=== PATIENT | male | born 1955 | race Caucasian/White ===

== ENCOUNTER 2016-11-11 17:50 | Emergency (ER) | payer OTHER ==
[~2016-11-11] VITALS: Ht 170.2 cm; Wt 65.8 kg
--- NOTE | 2016-11-11 18:22 | NUR ---
PT HAS PRESENTED TO ER RT HAND BURN CLEAN ED AND DRESSEDAWAITING EVALUATION BY ER PROVIDER.
[2016-11-11 18:24] VITALS: BP 114/89
[2016-11-11] MEDS ORDERED: SILVER SULFADIAZINE CREAM 25 GM TUBE TP ONE (18:30)
--- NOTE | 2016-11-11 18:38 | NUR ---
DRESSING APPLIED PT TOLERATED WELL PT. VERBALIZED UNDERSTANDING OF AFTERCARE INSTRUCTIONS.Patient discharged to home in stable condition. Written and verbal after care instructions given. Patient verbalizes understanding of instruction.
== END 2016-11-11 18:40 | disposition home or self-care (01) ==
LOC: ER 18:04
DX: T23.201A Burn of second degree of right hand, unspecified site, initial encounter (principal); T75.00XA Unspecified effects of lightning, initial encounter; X08.8XXA Exposure to other specified smoke, fire and flames, initial encounter; Y93.89 Activity, other specified; Y92.89 Other specified places as the place of occurrence of the external cause; Y99.8 Other external cause status
CPT/HCPCS: 16020; 99285; A4606; Z7610